=== PATIENT | male | born 1950 | race Caucasian/White ===

== ENCOUNTER 2016-08-19 12:12 | Emergency (ER) | payer OTHER ==
[~2016-08-19] VITALS: Ht 167.6 cm; Wt 88.5 kg
[2016-08-19 12:40] VITALS: BP 133/97
--- NOTE | 2016-08-19 13:35 | NUR ---
Patient to bed 05.
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
--- NOTE | 2016-08-19 13:46 | NUR ---
Dr. Lopez evaluating patient at bedside.
[2016-08-19] MEDS ORDERED: HYDROcodone/APAP 5/325 MG 1 TAB TAB PO ONE (14:00)
--- NOTE | 2016-08-19 14:38 | NUR ---
Patient discharged with v/s stable. Written and verbal after care instructions given and explained. Patient alert, oriented and verbalized understanding of instructions. Ambulatory with steady gait. All questions addressed prior to discharge. ID band removed. Patient advised to follow up with PMD. Rx of MOTRIN AND ZOFRAN given. Patient educated on indication of medication including possible reaction and side effects. Opportunity to ask questions provided and answered.
[2016-08-19 14:43] VITALS: BP 134/78
== END 2016-08-19 14:38 | disposition home or self-care (01) ==
LOC: MED 12:12
DX: R51 Headache (principal); M54.2 Cervicalgia; H57.8 Other specified disorders of eye and adnexa; E11.9 Type 2 diabetes mellitus without complications; I10 Essential (primary) hypertension; Z90.49 Acquired absence of other specified parts of digestive tract